=== PATIENT | female | born 1955 | race African-American/Black ===

== ENCOUNTER 2017-03-12 00:28 | Emergency (ER) | payer OTHER ==
[~2017-03-12] VITALS: Ht 152.4 cm; Wt 74.4 kg
[~2017-03-12 00:28] MED LIST: AFRIN,GENASAL D15 ML BOTH NARES; CIPRO500 MG PO; CLONIDINE HCL0.2 MG PO; HYDROCODON-ACE1 EAC7 PO; METOPROLOL TART50 MG PO; MOTRIN600 MG PO; TRAMADOL HCL50 MG PO; ZOFRAN4 MG PO
[2017-03-12 03:09] LABS: ADD MIUA? YES; BILIRUBIN NEGATIVE; BLOOD SMALL; COLOR YELLOW ((YELLOW)); GLUCOSE (STRIP) NEGATIVE; KETONES NEGATIVE; LEUKOCYTES NEGATIVE; NITRITE NEGATIVE; PROTEIN (STRIP) 30; SPECIFIC GRAVITY 1.014 (1.000-1.030); UROBILINOGEN 0.2 MG/DL (0.2-1.0)
[2017-03-12 03:13] LABS: BACTERIA NONE SEEN /HPF; EPITHELIAL CELLS RARE /HPF; MUCUS TRACE /LPF; RED BLOOD CELLS 0-5 /HPF (0-5); UCUL ADDED? NO; WHITE BLOOD CELLS 0-5 /HPF (0-5)
[2017-03-12] MEDS ORDERED: NORCO 5/3251 TABLET PO (03:23)
[2017-03-12] MEDS ORDERED: LIDODERM 5% P1 PATCH TD (03:23)
[2017-03-12 04:06] VITALS: BP 126/86
== END 2017-03-12 04:07 | disposition home or self-care (01) ==
LOC: EME 00:28
PROVIDERS: Emergency Medicine
DX: M54.5 Low back pain (principal); G89.29 Other chronic pain; I10 Essential (primary) hypertension; Z91.14 Patient's other noncompliance with medication regimen; R20.0 Anesthesia of skin; R20.2 Paresthesia of skin; F17.200 Nicotine dependence, unspecified, uncomplicated
CPT/HCPCS: 81003